=== PATIENT | male | born 1985 | race Caucasian/White ===

== ENCOUNTER 2019-05-11 15:47 | Emergency (ER) | payer SELFPAY ==
[2019-05-11 16:05] VITALS: BP 149/81
--- NOTE | 2019-05-11 16:38 | UC ---
Cardiac HPI - HPI Summary HPI Summary: Unwell well yesterday, with diarrhea, chills and malaise, nausea but no vomiting. [place] somewhat better this morning, but had onset moderately severe chest pain to the right parasternal area this morning while drinking coffee. NO associated shortness of breath, rested for a couple of hours and felt a bit better, but advised by his co-workers to get it checked out. Pain now mostly resolved. Has not had regular medical care x years. Past hx of reflux and uses omeprazole daily, although not today. Smokes 1 ppd. BP is elevated here today, but has not had a check in several years. Does not know his cholesterol or blood sugar. He reports that his father did have an OR before age 50, but he does not know his age at the time of the event. Does not drink alcohol, no other substances. - History of Current Complaint Chief Complaint: UCChestPain Stated Complaint: HEADACHE, CHEST PAIN Time Seen by Provider: 05/11/19 16:28 Hx Obtained From: Patient Onset/Duration: Sudden Onset, Lasting Hours Initial Severity: Moderate Current Severity: None Pain Intensity: 0 Chest Pain Location: Right Anterior Character: Sharp/Stabbing Aggravating Factor(s): Nothing Alleviating Factor(s): Rest Associated Signs & Symptoms: Positive: Chest Pain, Headaches - on occasion, not today - Risk Factors Pulmonary Embolism Risk Factors: Smoking Cardiac Risk Factors: Hypertension, Smoking, Family History Atrial Fibrillation: Hypertension TAD Risk Factors: Hypertension AMI/ACS Risk Factors: Obesity, Family History - Allergy/Home Medications Allergies/Adverse Reactions: Allergies Allergy/AdvReac Type Severity Reaction Status Date / Time No Known Allergies Allergy Verified 05/11/19 16:00 Home Medications: Home Medications Omeprazole 20 mg PO DAILY 05/11/19 [History Confirmed 05/11/19] PMH/Surg Hx/FS Hx/Imm Hx - Additional Past Medical History Additional PMH: obesity GI/ History: Gastroesophageal Reflux - Surgical History Surgical History: None - Family History Known Family History: Positive: Cardiac Disease - father had OR, currently living - Social History Occupation: Employed Full-time - gas welder Lives: With Family Alcohol Use: None Substance Use Type: None Smoking Status (MU): Heavy Every Day Tobacco Smoker Review of Systems All Other Systems Reviewed And Are Negative: Yes Constitutional: Positive: Negative Skin: Positive: Negative Eyes: Positive: Blurred Vision - on occasion, with headache. ENT: Positive: Negative Respiratory: Negative: Shortness Of Breath, Cough Cardiovascular: Positive: Chest Pain Gastrointestinal: Positive: Diarrhea Genitourinary: Positive: Negative Motor: Positive: Negative Neurovascular: Positive: Negative Musculoskeletal: Negative: Arthralgia, Edema Neurological: Negative: Headache, Weakness, Paresthesia Psychological: Positive: Anxious Is Patient Immunocompromised?: No Physical Exam Triage Information Reviewed: Yes Appearance: Well-Appearing, No Pain Distress, Obese Vital Signs: Initial Vital Signs Temp 98 F 05/11/19 15:55 Pulse 78 05/11/19 15:55 Resp 16 05/11/19 15:55 BP 157/92 05/11/19 15:55 Pulse Ox 98 05/11/19 15:55 Eyes: Positive: Conjunctiva Clear ENT: Positive: Pharynx normal Neck: Positive: Supple, Nontender, No Lymphadenopathy Respiratory: Positive: Lungs clear, Normal breath sounds Cardiovascular: Positive: RRR, No Murmur Abdomen Description: Positive: Nontender, No Organomegaly, Soft Musculoskeletal Exam: Normal, Other - no chest wall tenderness Neurological: Positive: Alert, Muscle Tone Normal Psychological Exam: Normal Skin Exam: Normal Diagnostics - EKG Cardiac Rate: NL Cardiac Rhythm: Sinus: Normal Ectopy: None ST Segment: Normal - Assessment/Plan Course Of Treatment: discussed need for cardiac risk factore work up. Offer to send to ER was declined. Aware of need to follow up blood pressure and stop smoking. - Differential Diagnoses - Chest Pain Differential Diagnosis/HQI/PQRI: ACS, Angina, GI Disease, Other: - viral illness - Clinical Impression Provider Diagnosis: Chest pain due to GERD Discharge - Sign-Out/Discharge Documenting (check all that apply): Patient Departure All imaging exams completed and their final reports reviewed: No Studies - Discharge Plan Condition: Stable Disposition: HOME Patient Education Materials: Chest Pain (ED) Referrals: No Primary Care Phys,NOPCP [Primary Care Provider] - Kaitlin Yo MD [Medical Doctor] - Additional Instructions: Your chest pain could be due to reflux or to musculoskelatal pain, but you do have risk factors for heart disease. You will arrange follow up with your primary doctor within the next 5 days, and have a re-check of your blood pressure. At this time, you will try to see Uli Stout Take a double dose of omeprazole tonight. If your chest pain recurs, please go the emergency room for evaluation. - Billing Disposition and Condition Condition: STABLE Disposition: Home
== END 2019-05-11 17:15 | disposition home or self-care (01) ==
LOC: UCEAST 15:47
DX: K21.9 Gastro-esophageal reflux disease without esophagitis (principal); R07.89 Other chest pain; Z82.49 Family history of ischemic heart disease and other diseases of the circulatory system; F17.210 Nicotine dependence, cigarettes, uncomplicated; R03.0 Elevated blood-pressure reading, without diagnosis of hypertension
CPT/HCPCS: 93005; 99201; G0463